=== PATIENT | male | born 1955 | race Caucasian/White ===

== ENCOUNTER 2020-07-03 22:45 | Emergency (ER) | payer BC ==
[~2020-07-03] VITALS: Ht 180.3 cm; Wt 93.2 kg
[2020-07-03] MEDS ORDERED: ketorolac tromethamine 15mg/ml inj. IV ONE (23:15)
[2020-07-03] MEDS ORDERED: ondansetron/PF 4mg/2ml inj IV ONE (23:15)
[2020-07-03] MEDS ORDERED: morphine 4 MG/ML inj SYRINge IV PRN (23:15)
[2020-07-03 23:29] LABS: BASOPHILS % (AUTO) 0.5 % (0-1); EOSINOPHILS # (AUTO) 0.3 X10'3 (0-0.9); HEMOGLOBIN 17.4 g/dl (14.0-17.9); LYMPHOCYTES % (AUTO) 35.5 % (21-51); MEAN CORPUSCULAR HEMOGLOBIN 32.4 PG (27.0-31.0); MEAN CORPUSCULAR HGB CONC 34.7 g/dL (33.0-36.5); MEAN CORPUSCULAR VOLUME 93.3 FL (78-98); MONOCYTES # (AUTO) 0.7 X10'3 (0-0.9); MONOCYTES % (AUTO) 8.8 % (2-12); NEUTROPHILS # (AUTO) 4.4 X10'3 (1.8-7.7); NEUTROPHILS % (AUTO) 52.2 % (42-75); PLATELET COUNT 171 X10'3 (140-440); RED BLOOD COUNT 5.37 X10'6 (4.70-6.10); RED CELL DISTRIBUTION WIDTH 12.9 % (11.5-14.5); WHITE BLOOD COUNT 8.5 X10'3 (4.5-11.0)
[2020-07-03 23:35] LABS: ALANINE AMINOTRANSFERASE 40 U/L (12-78); ALBUMIN 3.8 G/DL (3.4-5.0); ALKALINE PHOSPHATASE 95 IU/L (46-116); ANION GAP 12 (8-16); ASPARTATE AMINO TRANSFERASE 22 U/L (10-37); BILIRUBIN,TOTAL 0.7 MG/DL (0.1-1.0); BLOOD UREA NITROGEN 17 MG/DL (7-18); BUN/CREATININE RATIO 19.5 (5.4-32.0); CALCIUM 9.3 MG/DL (8.5-10.1); CHLORIDE 99 MMOL/L (99-107); CREATININE 0.87 MG/DL (0.60-1.10); GLUCOSE 419 MG/DL (70-104); LIPASE 142 U/L (73-393); POTASSIUM 4.1 MMOL/L (3.5-5.1); SODIUM 134 MMOL/L (135-145); TOTAL PROTEIN 7.5 G/DL (6.4-8.2); eGFR 88 ML/MIN
[2020-07-04 00:01] LABS: CLARITY,URINE CLEAR (Clear); COLOR,URINE YELLOW (Yellow); GLUCOSE, URINE >=1000 mg/dl (Neg); KETONES,URINE 15 mg/dl (Neg); LEUKOCYTE ESTERASE ,URINE NEGATIVE (Neg); NITRITES, URINE NEGATIVE (Neg); OCCULT BLOOD,URINE TRACE-INTACT (Neg); PROTEIN,URINE TRACE mg/dl (Neg); UROBILINOGEN,URINE 0.2 E.U/dL (0.2-1.0)
[2020-07-04] MEDS ORDERED: HYDR-3972 PO (00:15)
[2020-07-04 00:22] LABS: UA COLLECTION TYPE URINAL
[2020-07-04 00:25] LABS: BACTERIA,URINE NONE SEEN /HPF (Neg); MUCUS STRANDS NONE SEEN /LPF (Neg); RBC,URINE 0-2 /HPF (0-2); SQUAMOUS EPITHELIAL CELL,UR FEW /LPF (FEW); WBC,URINE 0-4 /HPF (0-4)
[2020-07-04 00:33] VITALS: BP 141/94
== END 2020-07-04 00:41 | disposition home or self-care (01) ==
LOC: ER 22:45
DX: R07.81 Pleurodynia (principal); R10.84 Generalized abdominal pain; E11.9 Type 2 diabetes mellitus without complications; Z79.899 Other long term (current) drug therapy
CPT/HCPCS: 36415; 74176; 80053; 81001; 82948; 83690; 85025; 96374; 96375; 99284; J1885; J2270; J2405; 81003

== ENCOUNTER 2020-07-17 07:11 | Emergency (ER) | payer BC ==
[~2020-07-17] VITALS: Ht 180.3 cm; Wt 93.2 kg
[~2020-07-17 07:11] MED LIST: HYDR-3972 PO
[2020-07-17] MEDS ORDERED: gabapentin 400mg capsule PO ONE (08:15)
[2020-07-17] MEDS ORDERED: LIDOCAINE 5% OINTMENT 35GM TP ONE (08:15)
[2020-07-17] MEDS ORDERED: ketorolac trometh. 30mg/ml inj. IV ONE (08:15)
[2020-07-17] MEDS ORDERED: acetaminophen 325mg tablet PO ONE (08:15)
[2020-07-17] MEDS ORDERED: ondansetron/PF 4mg/2ml inj IV ONE (08:15)
[2020-07-17] MEDS ORDERED: morphine 4 MG/ML inj SYRINge IV ONE (08:15)
[2020-07-17 09:09] VITALS: BP 137/89
== END 2020-07-17 09:13 | disposition home or self-care (01) ==
LOC: ER 07:12
DX: G62.9 Polyneuropathy, unspecified (principal); R07.81 Pleurodynia; E11.9 Type 2 diabetes mellitus without complications; G89.29 Other chronic pain; Z79.899 Other long term (current) drug therapy
CPT/HCPCS: 96374; 96375; 99284; J1885; J2270; J2405

== ENCOUNTER 2020-09-02 09:58 | Emergency (ER) | payer BC ==
[~2020-09-02] VITALS: Ht 180.3 cm; Wt 86.8 kg
--- NOTE | 2020-09-02 11:11 | NUR ---
AT BEDSIDE STATES, HE TOOK A FEW DOSES OF TRULICITY THAT HE GOT FROM HIS FRIEND.
[2020-09-02] MEDS ORDERED: dicyclomine 10 MG capsule PO ONE (11:25)
[2020-09-02] MEDS ORDERED: normal saline 1000ML IV soln IVB ONE (11:25)
[2020-09-02] MEDS ORDERED: ondansetron/PF 4mg/2ml inj IV ONE (11:25)
[2020-09-02 11:52] LABS: BASOPHILS % (AUTO) 0.3 % (0-1); EOSINOPHILS # (AUTO) 0.1 X10'3 (0-0.9); EOSINOPHILS % (AUTO) 0.9 % (0-6); HEMATOCRIT 50.6 % (42.0-52.0); HEMOGLOBIN 17.4 g/dl (14.0-17.9); LYMPHOCYTES % (AUTO) 28.1 % (21-51); MEAN CORPUSCULAR HEMOGLOBIN 32.3 PG (27.0-31.0); MEAN CORPUSCULAR HGB CONC 34.4 g/dL (33.0-36.5); MEAN CORPUSCULAR VOLUME 93.8 FL (78-98); MEAN PLATELET VOLUME 7.4 FL (7.4-10.4); MONOCYTES # (AUTO) 0.5 X10'3 (0-0.9); MONOCYTES % (AUTO) 7.3 % (2-12); NEUTROPHILS # (AUTO) 4.6 X10'3 (1.8-7.7); NEUTROPHILS % (AUTO) 63.4 % (42-75); PLATELET COUNT 171 X10'3 (140-440); RED BLOOD COUNT 5.39 X10'6 (4.70-6.10); RED CELL DISTRIBUTION WIDTH 13.3 % (11.5-14.5); WHITE BLOOD COUNT 7.2 X10'3 (4.5-11.0)
[2020-09-02 12:06] LABS: ALANINE AMINOTRANSFERASE 23 U/L (12-78); ALBUMIN 3.9 G/DL (3.4-5.0); ALKALINE PHOSPHATASE 81 IU/L (46-116); ANION GAP 10 (8-16); ASPARTATE AMINO TRANSFERASE 17 U/L (10-37); BILIRUBIN,TOTAL 0.9 MG/DL (0.1-1.0); BLOOD UREA NITROGEN 19 MG/DL (7-18); BUN/CREATININE RATIO 28.8 (5.4-32.0); CALCIUM 9.5 MG/DL (8.5-10.1); CHLORIDE 105 MMOL/L (99-107); CREATININE 0.66 MG/DL (0.60-1.10); GLUCOSE 145 MG/DL (70-104); LIPASE 95 U/L (73-393); POTASSIUM 3.7 MMOL/L (3.5-5.1); SODIUM 140 MMOL/L (135-145); TOTAL CARBON DIOXIDE 24.7 MMOL/L (24-32); TOTAL PROTEIN 7.9 G/DL (6.4-8.2); eGFR > 90 ML/MIN
[2020-09-02] MEDS ORDERED: iohexol 300mg/ml 100ml inj. ONE (12:17)
[2020-09-02] MEDS ORDERED: LIDOcaine Viscous 15ml cup MM STA (12:29)
[2020-09-02] MEDS ORDERED: mag hydrox/Alum hydrox/simeth 30ml oral suspension PO ONE (12:30)
[2020-09-02] MEDS ORDERED: famotidine 20mg tablet PO ONE (12:30)
[2020-09-02] MEDS ORDERED: proCHLORperazine 10 MG/2 ml inj IV ONE (12:35)
[2020-09-02] MEDS ORDERED: MESSAGE TO NURSING PO SCH (13:00)
[2020-09-02] MEDS ORDERED: PANT20TA18 PO (13:28)
[2020-09-02] MEDS ORDERED: ONDA4TAB6 PO (13:28)
[2020-09-02] MEDS ORDERED: MAG355OR18 PO (13:28)
[2020-09-02] MEDS ORDERED: DICY10CA88 PO (13:28)
[2020-09-02 13:38] LABS: CLARITY,URINE CLEAR (Clear); COLOR,URINE YELLOW (Yellow); GLUCOSE, URINE NEGATIVE (Neg); KETONES,URINE 15 mg/dl (Neg); LEUKOCYTE ESTERASE ,URINE NEGATIVE (Neg); NITRITES, URINE NEGATIVE (Neg); OCCULT BLOOD,URINE NEGATIVE (Neg); PROTEIN,URINE 30 mg/dl (Neg); UROBILINOGEN,URINE 0.2 E.U/dL (0.2-1.0)
[2020-09-02 13:39] LABS: UA COLLECTION TYPE URINAL
[2020-09-02 13:50] LABS: BACTERIA,URINE NONE SEEN /HPF (Neg); MUCUS STRANDS MODERATE /LPF (Neg); RBC,URINE NONE SEEN /HPF (0-2); SQUAMOUS EPITHELIAL CELL,UR FEW /LPF (FEW); WBC,URINE 0-4 /HPF (0-4)
[2020-09-02 13:51] LABS: COARSE GRANULAR CAST 0-3 /LPF (NEGATIVE); HYALINE CASTS 0-3 /LPF (NEGATIVE)
[2020-09-02 14:05] VITALS: BP 138/95
== END 2020-09-02 14:06 | disposition home or self-care (01) ==
LOC: ER 09:58
DX: R10.84 Generalized abdominal pain (principal); R11.2 Nausea with vomiting, unspecified; E11.9 Type 2 diabetes mellitus without complications; G89.29 Other chronic pain; Z79.899 Other long term (current) drug therapy
CPT/HCPCS: 20552; 36415; 74177; 80053; 81001; 83690; 84484; 85025; 93005; 96361; 96374; 96375; 99285; J0780; J2405; J7030; Q9967

== ENCOUNTER 2020-12-20 15:09 | Emergency (ER) | payer BC ==
[~2020-12-20] VITALS: Ht 180.3 cm; Wt 79.5 kg
[~2020-12-20 15:09] MED LIST changes: +CYCL-1 PO; +DICY10CA88 PO; -HYDR-3972 PO; +ONDA4TAB6 PO; +PANT20TA18 PO
[2020-12-20] MEDS ORDERED: ondansetron 4mg rapidly disintigrating tab PO ONE (16:05)
[2020-12-20] MEDS ORDERED: ketorolac trometh inj. 60 MG/2 ML VIAL IM ONE (16:05)
[2020-12-20] MEDS ORDERED: HYDROcodone/acetaminophen 10/325mg tab PO ONE (16:05)
--- NOTE | 2020-12-20 16:20 | NUR ---
US underway. Pt's [place] bedside.
[2020-12-20 16:35] LABS: BASOPHILS % (AUTO) 0.4 % (0-1); EOSINOPHILS # (AUTO) 0.2 X10'3 (0-0.9); EOSINOPHILS % (AUTO) 1.7 % (0-6); HEMATOCRIT 47.7 % (42.0-52.0); HEMOGLOBIN 16.6 g/dl (14.0-17.9); LYMPHOCYTES # (AUTO) 3.5 X10'3 (1.1-4.8); LYMPHOCYTES % (AUTO) 36.7 % (21-51); MEAN CORPUSCULAR HEMOGLOBIN 33.2 PG (27.0-31.0); MEAN CORPUSCULAR HGB CONC 34.9 g/dL (33.0-36.5); MEAN CORPUSCULAR VOLUME 95.2 FL (78-98); MEAN PLATELET VOLUME 7.1 FL (7.4-10.4); MONOCYTES # (AUTO) 0.9 X10'3 (0-0.9); MONOCYTES % (AUTO) 9.6 % (2-12); NEUTROPHILS % (AUTO) 51.6 % (42-75); PLATELET COUNT 216 X10'3 (140-440); RED BLOOD COUNT 5.01 X10'6 (4.70-6.10); RED CELL DISTRIBUTION WIDTH 13.1 % (11.5-14.5); WHITE BLOOD COUNT 9.6 X10'3 (4.5-11.0)
[2020-12-20 16:43] LABS: ALANINE AMINOTRANSFERASE 21 U/L (12-78); ALBUMIN 3.8 G/DL (3.4-5.0); ALKALINE PHOSPHATASE 89 IU/L (46-116); ANION GAP 12 (8-16); ASPARTATE AMINO TRANSFERASE 11 U/L (10-37); BILIRUBIN,TOTAL 0.7 MG/DL (0.1-1.0); BLOOD UREA NITROGEN 14 MG/DL (7-18); BUN/CREATININE RATIO 19.7 (5.4-32.0); CALCIUM 9.4 MG/DL (8.5-10.1); CHLORIDE 104 MMOL/L (99-107); CREATININE 0.71 MG/DL (0.60-1.10); GLUCOSE 94 MG/DL (70-104); POTASSIUM 3.7 MMOL/L (3.5-5.1); SODIUM 142 MMOL/L (135-145); TOTAL CARBON DIOXIDE 25.9 MMOL/L (24-32); TOTAL PROTEIN 7.7 G/DL (6.4-8.2); eGFR > 90 ML/MIN
[2020-12-20] MEDS ORDERED: ACYC-129 PO (17:05)
[2020-12-20] MEDS ORDERED: ONDA4TAB6 PO (17:05)
[2020-12-20] MEDS ORDERED: HYDR-3965 PO (17:05)
[2020-12-20 17:52] VITALS: BP 130/93
== END 2020-12-20 17:30 | disposition home or self-care (01) ==
LOC: ER 15:09
DX: B02.23 Postherpetic polyneuropathy (principal); R07.89 Other chest pain; G89.29 Other chronic pain; Z79.899 Other long term (current) drug therapy
CPT/HCPCS: 36415; 76870; 80053; 85025; 93976; 96372; 99284; J1885

== ENCOUNTER 2021-05-17 08:24 | Emergency (ER) | payer BC ==
[~2021-05-17] VITALS: Ht 172.7 cm; Wt 86.4 kg
[2021-05-17 08:36] VITALS: BP 110/68
[2021-05-17] MEDS ORDERED: ketorolac tromethamine 15mg/ml inj. IM ONE (08:55)
[2021-05-17] MEDS ORDERED: DIAZ5TAB22 PO (11:13)
== END 2021-05-17 11:24 | disposition home or self-care (01) ==
LOC: ER 08:25
DX: S39.012A Strain of muscle, fascia and tendon of lower back, initial encounter (principal); M25.562 Pain in left knee; E11.9 Type 2 diabetes mellitus without complications; G89.29 Other chronic pain; Z86.19 Personal history of other infectious and parasitic diseases; Z79.899 Other long term (current) drug therapy; X50.1XXA Overexertion from prolonged static or awkward postures, initial encounter; Y93.89 Activity, other specified; Y92.89 Other specified places as the place of occurrence of the external cause; Y99.8 Other external cause status
CPT/HCPCS: 96372; 99283; J1885

== ENCOUNTER 2021-07-19 20:32 | Inpatient (IN) | payer BC ==
[~2021-07-19] VITALS: Ht 180.3 cm; Wt 73.9 kg
--- NOTE | 2021-07-19 02:45 | NUR ---
Pt arrived , room 3026B, on admission, pt is stable, VSS, Afebrile, no c/o CP. Call light placed within easy reach of pt. bed in lowest position, side rails up x2. Unit routines explained to pt, POC discussed with pt, verbalized understanding. Bed alarm initiated, pt states, he fell, yesterday at home, no physical injury.
--- NOTE | 2021-07-19 20:00 | NUR ---
Patient coming from [place], to room 3026 B. I have received report from DORCAS Saez, of [facility], and had the opportunity to ask questions and assume patient care. Pt is being transferred here, for electrical controls technician consult, for cardiac cath.
[2021-07-19 20:46] VITALS: BP 116/73
[2021-07-19] MEDS ORDERED: ondansetron/PF 4mg/2ml inj IV PRN (22:30)
[2021-07-19] MEDS ORDERED: magnesium 4gm in 100ml NS 100 ML IV PRN (22:30)
[2021-07-19] MEDS ORDERED: PERFLUTREN PROTEIN-A MICROSPHR (Optison) 0.22 MG/ML 3ML VIAL IV PRN (22:30)
[2021-07-19] MEDS ORDERED: magnesium Cl slow-release 64mg tablet PO PRN (22:30)
[2021-07-19] MEDS ORDERED: mag hydrox/Alum hydrox/simeth 30ml oral suspension PO PRN (22:30)
[2021-07-19] MEDS ORDERED: potassium CL 10mEq/100ml bag 100 ML IV PRN (22:30)
[2021-07-19] MEDS ORDERED: magnesium 2GM in 50ml NS 50 ML IV PRN (22:30)
[2021-07-19] MEDS ORDERED: potassium Cl 20 mEq SR tablet PO PRN ×2 (22:30)
[2021-07-19] MEDS ORDERED: magnesium hydroxide 30ml (MOM) UD suspension PO PRN (22:30)
[2021-07-19] MEDS ORDERED: glucagon, human recombinant 1mg kit SUBCUT PRN (22:35)
[2021-07-19] MEDS ORDERED: insulin Lispro (HumaLOG) vial - multi-dose SQ SCH (22:35)
[2021-07-19] MEDS ORDERED: dextrose 50%-water 50ml dispensing syringe IV PRN ×2 (22:35)
[2021-07-19] MEDS ORDERED: MESSAGE TO PHARMACY PO ONE (22:35)
[2021-07-19] MEDS ORDERED: DEXTROSE 15 GM of carb/4 tabs (each vial/BOTTLE has 4 tablets) PO PRN ×2 (22:35)
[2021-07-19] MEDS: normal saline 1000ml 1,000 ML IV SCH (23:08)
[2021-07-20] VITALS (11 sets, daily range): BP systolic 126–159; BP diastolic 62–83
[2021-07-20] MEDS ORDERED: DIAZ5TAB4 PO (00:41)
[2021-07-20] MEDS ORDERED: METF-438 PO (00:41)
[2021-07-20] MEDS ORDERED: FLO0.4C PO ×2 (00:41→11:30)
[2021-07-20 02:23] LABS: BASOPHILS % (AUTO) 0.5 % (0-1); EOSINOPHILS # (AUTO) 0.4 X10'3 (0-0.9); HEMATOCRIT 43.7 % (42.0-52.0); HEMOGLOBIN 14.9 g/dl (14.0-17.9); LYMPHOCYTES # (AUTO) 3.1 X10'3 (1.1-4.8); LYMPHOCYTES % (AUTO) 42.3 % (21-51); MEAN CORPUSCULAR HEMOGLOBIN 31.5 PG (27.0-31.0); MEAN CORPUSCULAR VOLUME 92.5 FL (78-98); MEAN PLATELET VOLUME 7.8 FL (7.4-10.4); MONOCYTES # (AUTO) 0.6 X10'3 (0-0.9); MONOCYTES % (AUTO) 8.2 % (2-12); NEUTROPHILS # (AUTO) 3.3 X10'3 (1.8-7.7); PLATELET COUNT 151 X10'3 (140-440); RED BLOOD COUNT 4.72 X10'6 (4.70-6.10); RED CELL DISTRIBUTION WIDTH 13.4 % (11.5-14.5); WHITE BLOOD COUNT 7.4 X10'3 (4.5-11.0)
[2021-07-20 02:46] LABS: ALANINE AMINOTRANSFERASE 19 U/L (12-78); ALBUMIN 3.2 G/DL (3.4-5.0); ALBUMIN/GLOBULIN RATIO 1.1 (1.1-1.5); ALKALINE PHOSPHATASE 100 IU/L (46-116); ANION GAP 9 (8-16); ASPARTATE AMINO TRANSFERASE 23 U/L (10-37); BILIRUBIN,TOTAL 0.7 MG/DL (0.1-1.0); BLOOD UREA NITROGEN 10 MG/DL (7-18); BUN/CREATININE RATIO 14.9 (5.4-32.0); CALCIUM 8.5 MG/DL (8.5-10.1); CHLORIDE 108 MMOL/L (99-107); CREATININE 0.67 MG/DL (0.60-1.10); GLUCOSE 136 MG/DL (70-104); POTASSIUM 4.3 MMOL/L (3.5-5.1); SODIUM 143 MMOL/L (135-145); TOTAL CARBON DIOXIDE 26.4 MMOL/L (24-32); TOTAL PROTEIN 6.2 G/DL (6.4-8.2); eGFR > 90 ML/MIN
[2021-07-20 02:48] LABS: CHOL/HDL RATIO 4.6 (0.00-4.99); CHOLESTEROL 181 MG/DL (0-200); HDL CHOLESTEROL 39 MG/DL (35-60); LDL CHOLESTEROL 106 MG/DL (50-100); MAGNESIUM 1.7 MG/DL (1.5-2.4); TRIGLYCERIDES 185 MG/DL (20-135)
[2021-07-20] MEDS: acetaminophen 325mg tablet PO PRN (04:47)
[2021-07-20] MEDS: diazepam 5mg tablet PO PRN (04:47)
--- NOTE | 2021-07-20 06:00 | NUR ---
Patient in room PCU 3026. I have received report from Deann Patterson and had the opportunity to ask questions and assume patient care.
--- NOTE | 2021-07-20 06:23 | NUR ---
Problems reprioritized. Patient report given, questions answered & plan of care reviewed with rebeka Peterson.
[2021-07-20] MEDS: heparin, porcine 5000 units/ml vial SQ SCH ×2 (08:00→19:37)
[2021-07-20] MEDS: K and/or MAG REPLACEMENT MC SCH ×2 (08:00→20:00)
--- NOTE | 2021-07-20 08:15 | NUR ---
Paged Dr. Marino regarding patient in pain and asking for his lyrica. PAGER ID: [phone] MESSAGE: [id number], Gonzalez Elliott. Patient is anxious and crying, complaining of leg pain. 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 He said his is here with his home medications. Kristen [facility] [id number].
[2021-07-20] MEDS ORDERED: HYDROcodone/acetaminophen 10/325mg tab PO ONE (08:25)
[2021-07-20] MEDS: pantoprazole 40mg Tablet.DR PO SCH (08:39)
[2021-07-20] MEDS: docusate sod 100mg capsule PO SCH ×2 (08:39→19:36)
[2021-07-20] MEDS ORDERED: heparin 1,000unit/ml 10ml vial 10 ML ONE ×2 (10:58→11:21)
[2021-07-20] MEDS ORDERED: verapamil 2.5 mg/ml inj IV ONE ×2 (10:58→11:21)
[2021-07-20] MEDS ORDERED: nitroGLYCERIN-Tridil 50MG/D5W 250 ML IV ONE ×2 (10:58→11:21)
[2021-07-20] MEDS ORDERED: LIDOcaine 1% (10mg/ml)w/preservative injection 20ml MDV ONE ×2 (10:58→11:21)
[2021-07-20] MEDS ORDERED: midazolam 1 mg/ML 2ml injection ONE ×2 (10:58→11:21)
[2021-07-20] MEDS ORDERED: fentaNYL/PF 50MCG/1 ML 2ML syringe ONE ×2 (10:58→11:21)
[2021-07-20] MEDS ORDERED: iohexol 350 MG/ML 50ML vial IV ONE ×2 (10:58→11:21)
[2021-07-20] MEDS ORDERED: iohexol 350MG/ML 100ml bottle IV ONE ×3 (10:59→12:28)
[2021-07-20] MEDS ORDERED: DULO-31 PO (11:30)
[2021-07-20] MEDS ORDERED: LOSA25TA96 PO (11:30)
[2021-07-20] MEDS ORDERED: PREG150C PO (11:30)
[2021-07-20] MEDS ORDERED: GLIM4TAB7 PO (11:30)
[2021-07-20] MEDS ORDERED: pregabalin 75mg capsule PO SCH (13:00)
[2021-07-20] MEDS: pregabalin 75mg capsule PO SCH ×2 (13:40→21:34)
[2021-07-20] MEDS: normal saline 1000ml 1,000 ML IV SCH ×3 (13:40→23:25)
--- NOTE | 2021-07-20 13:50 | NUR ---
Paged Dr. Kang regarding if patient can eat. PAGER ID: [phone] MESSAGE: [phone], Gonzalez Elliott. 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 Kristen [facility] [id number].
[2021-07-20] MEDS: duloxetine 30mg CAPSULE.DR PO SCH (15:22)
[2021-07-20] MEDS: losartan 25mg tablet PO SCH (15:23)
--- NOTE | 2021-07-20 18:17 | NUR ---
Problems reprioritized. Patient report given, questions answered & plan of care reviewed with Deann Patterson RN, patient stable at transfer of care.
--- NOTE | 2021-07-20 18:21 | NUR ---
Patient in room PCU 3026. I have received report from DORCAS Peterson, and had the opportunity to ask questions and assume patient care. and had the opportunity to ask questions and assume patient care.
[2021-07-20] MEDS: tamsulosin 0.4mg capsule PO SCH ×2 (19:36→21:34)
[2021-07-20] MEDS: insulin glargine (Lantus) pen - multi-dose SQ SCH (21:39)
[2021-07-21] VITALS (8 sets, daily range): BP systolic 115–155; BP diastolic 56–88
[2021-07-21] MEDS: diazepam 5mg tablet PO PRN (03:00)
[2021-07-21] MEDS: acetaminophen 325mg tablet PO PRN (03:02)
[2021-07-21 06:06] LABS: BASOPHILS % (AUTO) 0.5 % (0-1); EOSINOPHILS # (AUTO) 0.3 X10'3 (0-0.9); EOSINOPHILS % (AUTO) 4.2 % (0-6); HEMATOCRIT 43.1 % (42.0-52.0); HEMOGLOBIN 15.1 g/dl (14.0-17.9); LYMPHOCYTES # (AUTO) 2.4 X10'3 (1.1-4.8); LYMPHOCYTES % (AUTO) 38.6 % (21-51); MEAN CORPUSCULAR VOLUME 91.6 FL (78-98); MONOCYTES # (AUTO) 0.5 X10'3 (0-0.9); MONOCYTES % (AUTO) 8.8 % (2-12); NEUTROPHILS % (AUTO) 47.9 % (42-75); PLATELET COUNT 145 X10'3 (140-440); RED BLOOD COUNT 4.71 X10'6 (4.70-6.10); RED CELL DISTRIBUTION WIDTH 13.3 % (11.5-14.5); WHITE BLOOD COUNT 6.2 X10'3 (4.5-11.0)
--- NOTE | 2021-07-21 06:12 | NUR ---
Problems reprioritized. Patient report given, questions answered & plan of care reviewed with DORCAS Peterson, pt to be NPO after Breakfast, for cardiac procedure today. .
--- NOTE | 2021-07-21 06:16 | NUR ---
Patient in room PCU 3026. I have received report from Deann Patterson RN and had the opportunity to ask questions and assume patient care.
[2021-07-21 06:40] LABS: ALANINE AMINOTRANSFERASE 22 U/L (12-78); ALBUMIN 3.3 G/DL (3.4-5.0); ALBUMIN/GLOBULIN RATIO 1.2 (1.1-1.5); ANION GAP 15 (8-16); ASPARTATE AMINO TRANSFERASE 16 U/L (10-37); BILIRUBIN,TOTAL 0.6 MG/DL (0.1-1.0); BLOOD UREA NITROGEN 10 MG/DL (7-18); BUN/CREATININE RATIO 15.2 (5.4-32.0); CALCIUM 8.6 MG/DL (8.5-10.1); CHLORIDE 105 MMOL/L (99-107); CREATININE 0.66 MG/DL (0.60-1.10); GLUCOSE 156 MG/DL (70-104); MAGNESIUM 1.9 MG/DL (1.5-2.4); POTASSIUM 3.8 MMOL/L (3.5-5.1); SODIUM 143 MMOL/L (135-145); TOTAL CARBON DIOXIDE 23.4 MMOL/L (24-32); TOTAL PROTEIN 6.1 G/DL (6.4-8.2); eGFR > 90 ML/MIN
[2021-07-21] MEDS: losartan 25mg tablet PO SCH (07:17)
[2021-07-21] MEDS: pantoprazole 40mg Tablet.DR PO SCH (07:17)
[2021-07-21] MEDS: docusate sod 100mg capsule PO SCH ×3 (07:17→19:33)
[2021-07-21] MEDS: duloxetine 30mg CAPSULE.DR PO SCH (07:18)
[2021-07-21] MEDS: pregabalin 75mg capsule PO SCH ×3 (07:18→19:26)
[2021-07-21] MEDS: K and/or MAG REPLACEMENT MC SCH ×2 (08:00→19:33)
[2021-07-21] MEDS: heparin, porcine 5000 units/ml vial SQ SCH ×2 (08:00→19:27)
[2021-07-21] MEDS: normal saline 1000ml 1,000 ML IV SCH ×2 (09:25→14:40)
--- NOTE | 2021-07-21 10:44 | NUR ---
Paged Dr. Kang regarding patients leg pain, asked for [place] 5mg and she okayed for altram 50mg 1 tab. PAGER ID: [phone] MESSAGE: [phone], pt is complaining of pain in his legs, can we get Belle[place]aine 5/325mg PRN for him please? Kristen [facility] 0584.
[2021-07-21] MEDS ORDERED: traMADol 50MG tablet PO PRN (10:50)
[2021-07-21] MEDS ORDERED: midazolam 1 mg/ML 2ml injection ONE ×3 (15:21→16:38)
[2021-07-21] MEDS ORDERED: nitroGLYCERIN-Tridil 50MG/D5W 250 ML IV ONE (15:21)
[2021-07-21] MEDS ORDERED: verapamil 2.5 mg/ml inj IV ONE (15:21)
[2021-07-21] MEDS ORDERED: fentaNYL/PF 50MCG/1 ML 2ML syringe ONE (15:21)
[2021-07-21] MEDS ORDERED: heparin 1,000unit/ml 10ml vial 10 ML ONE (15:22)
[2021-07-21] MEDS ORDERED: LIDOcaine 1% (10mg/ml)w/preservative injection 20ml MDV ONE (15:22)
[2021-07-21] MEDS ORDERED: iohexol 350 MG/1 ML 200ml bottle ONE (15:22)
[2021-07-21] MEDS ORDERED: heparin 25,000 UNIT/250ml bag 250 ML IV ONE (16:04)
[2021-07-21] MEDS ORDERED: clopidogrel 300mg tablet ONE (16:36)
[2021-07-21] MEDS ORDERED: cyclobenzaprine 10mg tablet PO PRN (17:35)
[2021-07-21] MEDS ORDERED: OXAZEpam 15mg capsule PO PRN (17:35)
[2021-07-21] MEDS ORDERED: magnesium hydroxide 30ml (MOM) UD suspension PO PRN (17:35)
[2021-07-21] MEDS ORDERED: normal saline 1000ml 1,000 ML IV ONE (17:35)
[2021-07-21] MEDS ORDERED: acetaminophen 325mg tablet PO PRN ×2 (17:35)
[2021-07-21] MEDS ORDERED: HYDROcodone/acetaminophen 10/325mg tab PO PRN ×2 (17:35)
[2021-07-21] MEDS: tamsulosin 0.4mg capsule PO SCH ×2 (18:00→19:25)
--- NOTE | 2021-07-21 18:45 | NUR ---
Problems reprioritized. Patient report given, questions answered & plan of care reviewed with Nelson RN, patient stable at transfer of care.
[2021-07-21] MEDS: insulin glargine (Lantus) pen - multi-dose SQ SCH (21:36)
[2021-07-22 06:00] VITALS: BP 128/86
[2021-07-22 06:33] LABS: BASOPHILS % (AUTO) 0.5 % (0-1); EOSINOPHILS # (AUTO) 0.3 X10'3 (0-0.9); EOSINOPHILS % (AUTO) 4.8 % (0-6); HEMATOCRIT 41.4 % (42.0-52.0); HEMOGLOBIN 14.3 g/dl (14.0-17.9); LYMPHOCYTES # (AUTO) 2.7 X10'3 (1.1-4.8); LYMPHOCYTES % (AUTO) 44.2 % (21-51); MEAN CORPUSCULAR HEMOGLOBIN 31.7 PG (27.0-31.0); MEAN CORPUSCULAR HGB CONC 34.5 g/dL (33.0-36.5); MEAN PLATELET VOLUME 7.5 FL (7.4-10.4); MONOCYTES # (AUTO) 0.6 X10'3 (0-0.9); MONOCYTES % (AUTO) 9.6 % (2-12); NEUTROPHILS # (AUTO) 2.5 X10'3 (1.8-7.7); NEUTROPHILS % (AUTO) 40.9 % (42-75); PLATELET COUNT 144 X10'3 (140-440); RED CELL DISTRIBUTION WIDTH 13.5 % (11.5-14.5); WHITE BLOOD COUNT 6.1 X10'3 (4.5-11.0)
[2021-07-22 07:08] LABS: ALANINE AMINOTRANSFERASE 22 U/L (12-78); ALBUMIN 3.1 G/DL (3.4-5.0); ALBUMIN/GLOBULIN RATIO 1.2 (1.1-1.5); ALKALINE PHOSPHATASE 90 IU/L (46-116); ANION GAP 11 (8-16); ASPARTATE AMINO TRANSFERASE 17 U/L (10-37); BILIRUBIN,TOTAL 0.5 MG/DL (0.1-1.0); BLOOD UREA NITROGEN 8 MG/DL (7-18); BUN/CREATININE RATIO 11.3 (5.4-32.0); CALCIUM 8.1 MG/DL (8.5-10.1); CHLORIDE 108 MMOL/L (99-107); CHOL/HDL RATIO 4.8 (0.00-4.99); CHOLESTEROL 179 MG/DL (0-200); CREATININE 0.71 MG/DL (0.60-1.10); GLUCOSE 109 MG/DL (70-104); HDL CHOLESTEROL 37 MG/DL (35-60); LDL CHOLESTEROL 97 MG/DL (50-100); MAGNESIUM 1.9 MG/DL (1.5-2.4); POTASSIUM 3.7 MMOL/L (3.5-5.1); SODIUM 144 MMOL/L (135-145); TOTAL CARBON DIOXIDE 25.5 MMOL/L (24-32); TOTAL PROTEIN 5.7 G/DL (6.4-8.2); TRIGLYCERIDES 200 MG/DL (20-135); eGFR > 90 ML/MIN
[2021-07-22] MEDS: pantoprazole 40mg Tablet.DR PO SCH (07:30)
[2021-07-22] MEDS: losartan 25mg tablet PO SCH (07:59)
[2021-07-22] MEDS: K and/or MAG REPLACEMENT MC SCH (08:00)
[2021-07-22] MEDS ORDERED: clopidogrel 75mg tablet PO SCH (08:00)
[2021-07-22] MEDS: docusate sod 100mg capsule PO SCH ×2 (08:00→08:16)
[2021-07-22] MEDS: duloxetine 30mg CAPSULE.DR PO SCH (08:00)
[2021-07-22] MEDS: pregabalin 75mg capsule PO SCH (08:01)
[2021-07-22] MEDS: heparin, porcine 5000 units/ml vial SQ SCH (08:04)
[2021-07-22] MEDS ORDERED: aspirin 325mg tablet PO SCH (08:30)
--- NOTE | 2021-07-22 08:30 | NUR ---
Problems reprioritized. Patient report given, questions answered & plan of care reviewed with DORCAS Angel.
[2021-07-22] MEDS ORDERED: ASPI-1 PO (10:33)
[2021-07-22] MEDS ORDERED: CLOP75TA34 PO (10:33)
[2021-07-22] MEDS ORDERED: ROSU20TA2 PO (10:50)
[2021-07-22 11:00] VITALS: BP 129/77
== END 2021-07-22 13:00 | disposition home or self-care (01) | DRG 246 ==
LOC: PCU 3S 20:42
PROVIDERS: ADMIT Internal Medicine; ATTEND Internal Medicine
PROC: 4A023N7 Measurement of Cardiac Sampling and Pressure, Left Heart, Percutaneous Approach (ICD-10-PCS; principal; 2021-07-20)
PROC: B2111ZZ Fluoroscopy of Multiple Coronary Arteries using Low Osmolar Contrast (ICD-10-PCS; 2021-07-20)
PROC: B2151ZZ Fluoroscopy of Left Heart using Low Osmolar Contrast (ICD-10-PCS; 2021-07-20)
PROC: 027337Z Dilation of Coronary Artery, Four or More Arteries with Four or More Drug-eluting Intraluminal Devices, Percutaneous Approach (ICD-10-PCS; 2021-07-21)
DX: I25.119 Atherosclerotic heart disease of native coronary artery with unspecified angina pectoris (principal); E11.40 Type 2 diabetes mellitus with diabetic neuropathy, unspecified; E78.5 Hyperlipidemia, unspecified; R94.39 Abnormal result of other cardiovascular function study; F32.A Depression, unspecified; M17.0 Bilateral primary osteoarthritis of knee; I10 Essential (primary) hypertension; N40.0 Benign prostatic hyperplasia without lower urinary tract symptoms; Z79.02 Long term (current) use of antithrombotics/antiplatelets; Z79.84 Long term (current) use of oral hypoglycemic drugs; Z79.899 Other long term (current) drug therapy
CPT/HCPCS: 93306; 93458; C9600; C9601; 36415; 76937; 80053; 80061; 82948; 83735; 84484; 85025; 85347; 87081; 92920; 92921; 93005; 99152; 99153; A4620; A5120; A6258; C1725; C1751; C1760; C1769; C1874; C1894; G0378; J1644; J1815; J2250; J3010; J3490; J7030; Q9967

== ENCOUNTER 2021-09-20 11:09 | Emergency (ER) | payer BC ==
[~2021-09-20] VITALS: Ht 180.3 cm; Wt 84.1 kg
[~2021-09-20 11:09] MED LIST changes: +ASPI-1 PO; +CLOP75TA34 PO; -CYCL-1 PO; -DICY10CA88 PO; +DULO-31 PO; +FLO0.4C PO; +GLIM4TAB7 PO; +LOSA25TA96 PO; +METF-438 PO; -ONDA4TAB6 PO; -PANT20TA18 PO; +PREG150C PO; +ROSU20TA2 PO
[2021-09-20 11:45] VITALS: BP 144/80
[2021-09-20] MEDS ORDERED: PREG150C PO (11:46)
== END 2021-09-20 12:05 | disposition home or self-care (01) ==
LOC: ER 11:10
DX: B02.23 Postherpetic polyneuropathy (principal); M25.511 Pain in right shoulder; E11.9 Type 2 diabetes mellitus without complications; G89.29 Other chronic pain; M25.569 Pain in unspecified knee; Z79.82 Long term (current) use of aspirin; Z79.899 Other long term (current) drug therapy
CPT/HCPCS: 99283